=== PATIENT | male | born 1955 | race Hispanic/Latino ===

== ENCOUNTER 2017-05-14 05:46 | Emergency (ER) | payer OTHER, BC ==
[2017-05-14 06:05] VITALS: TEMP 97.9
[2017-05-14 06:17] VITALS: RESP 18
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
--- NOTE | 2017-05-14 09:24 | RAD ---
PROCEDURE: Radiographs of the Chest and Right Ribs. HISTORY: r/o fx - tenderness to anterior 5-7 ribs COMPARISON: None available. TECHNIQUE: Frontal radiograph of the chest and multiple oblique radiographs of the right ribs were obtained. FINDINGS: RIGHT RIBS: No fracture or focal lesion visualized. LUNGS: Clear. PLEURA: No pneumothorax or pleural fluid. CARDIOVASCULAR: Normal sized heart. No pulmonary vascular congestion. OTHER FINDINGS: None. IMPRESSION: Unremarkable radiographs of the chest and right ribs. No right rib fracture.
[2017-05-14 09:40] VITALS: BP 160/90; PULSE 76; O2SAT 98
--- NOTE | 2017-05-14 10:44 | CARD ---
APPROVED REPORT EKG Measurement Heart [id number] <Conclusion> Normal sinus rhythm Possible Left atrial enlargement Borderline ECG
== END 2017-05-14 10:57 | disposition home or self-care (01) ==
LOC: ED 05:46
DX: S20.211A Contusion of right front wall of thorax, initial encounter (principal); V43.52XA Car driver injured in collision with other type car in traffic accident, initial encounter; Y92.410 Unspecified street and highway as the place of occurrence of the external cause